=== PATIENT | male | born 1955 | race Caucasian/White ===

== ENCOUNTER 2017-02-14 09:44 | Inpatient (IN) ==
--- NOTE | 2017-02-13 21:26 | Discharge Summary ---
<Micheline Nava - Last Filed: 02/13/17 21:24> Date of Encounter: 02/13/17 - Discharge Diagnosis (1) Arthritis of knee, right Priority: Primary Status: Acute (2) Rheumatoid arthritis Priority: Secondary Status: Chronic Qualifiers: Rheumatoid arthritis location: unspecified site Rheumatoid factor presence : unspecified presence Qualified Code(s): M06.9 - Rheumatoid arthritis, unspecified (3) HTN (hypertension) Priority: Secondary Status: Chronic Qualifiers: Hypertension type: essential hypertension Qualified Code(s): I10 - Essential (primary) hypertension (4) Chronic pain Priority: Secondary Status: Chronic Comments: Takes [place] 10/325 BID, Last dose 01/07/17, #60 Will hold this. Qualifiers: Chronic pain type: other chronic pain Qualified Code(s): G89.29 - Other chronic pain - Discharge Medications Home Medications: Atenolol [Tenormin] 12.5 mg PO DAILY 07/06/16 [History] Cholecalciferol (D-3) [Vitamin D] 1,000 unit PO DAILY 07/06/16 [History] Hydroxychloroquine [Plaquenuil] 200 mg PO DAILY 07/06/16 [History] Lisinopril/Hydrochlorothiazide [Zestoretic 20-12.5 mg Tablet] 1 tab PO DAILY 09/20 [History] Ranitidine HCl [Heartburn Relief] 150 mg PO BID 07/06/16 [History] Zolpidem [Ambien] 10 mg PO HS PRN 07/06/16 [History] Glucosamn/Condroitn/C/Mn/[place] [[facility] Glucosamine Chondroit Cplt] 1 each PO DAILY 08/18/16 [History] Aspirin Enteric Coated [Aspirin EC] 325 mg PO DAILY #21 tablet. 02/13/17 [Rx] OxyCODONE Immed Rel [Roxicodone 5 MG] 5 - 10 mg PO Q6HR PRN #40 tablet 02/13/17 [Rx] Aspirin [Lo-Dose Aspirin EC] 81 mg PO DAILY 02/14/17 [History] predniSONE [PredniSONE] 3 mg PO DAILY 02/14/17 [History] Allergies/Adverse Reactions: Allergies gabapentin Adverse Reaction (Verified 02/14/17 12:38) See Comments severe constipation methotrexate Adverse Reaction (Verified 02/14/17 12:38) Vomiting Primary care physician: Carlos Schultz MD - Patient Status Disposition: Home, Self-Care Condition: Good - Discharge Instructions Follow Up With: Carlos Schultz MD [Primary Care Provider] - - Hospital Course Hospital course: Mr. Terrell is a 61 year old male - Time Spent with Patient Total time spent providing and/or coordinating discharge services: <MaldonadoAlexander - Last Filed: 02/16/17 06:55> Date of Encounter: 02/16/17 Time of Encounter: 06:55 - Discharge Diagnosis (1) Arthritis of knee, right Priority: Primary Status: Acute (2) Rheumatoid arthritis Priority: Secondary Status: Chronic Qualifiers: Rheumatoid arthritis location: unspecified site Rheumatoid factor presence : unspecified presence Qualified Code(s): M06.9 - Rheumatoid arthritis, unspecified (3) HTN (hypertension) Priority: Secondary Status: Chronic Qualifiers: Hypertension type: essential hypertension Qualified Code(s): I10 - Essential (primary) hypertension (4) Chronic pain Priority: Secondary Status: Chronic Qualifiers: Chronic pain type: other chronic pain Qualified Code(s): G89.29 - Other chronic pain Primary care physician: Carlos Schultz MD - Patient Status Functional capacity at discharge: uses cane/walker Overall status at discharge: patient is progressing back to baseline - Hospital Course Hospital course: Mr. Terrell is a 61 year old male uneventful post op course asa for dvt prophylaxis - Time Spent with Patient Total time spent providing and/or coordinating discharge services:
[2017-02-14] MEDS ORDERED: Albuterol 2.5 MG/3 ML NEBULIZER IH ONE (10:02)
[2017-02-14] MEDS ORDERED: CeFAZolin Pre 2,000 MG/100 ML 2,000 MG/100 ML BAG IVPB ONE (10:02)
[2017-02-14] MEDS ORDERED: Ringers Solution, Lactated 1,000 ML IVC SCH ×2 (10:15→17:32)
[2017-02-14] MEDS ORDERED: Lidocaine -MPF 1% 2 ML VIAL ID ONE (10:19)
[2017-02-14] MEDS ORDERED: CeFAZolin Pre 3,000 MG/100 ML 3,000 MG/100 ML BAG IVPB ONE (10:19)
--- NOTE | 2017-02-14 10:45 | History & Physical Report ---
Date of Encounter: 02/14/17 Time of Encounter: 10:45 24 Hour HP Update - Instructions Instructions: If the History and Physical is less than 30 days old and was completed prior to A.M. admission and or procedure and has NOT been updated on calendar day of procedure please complete this update prior to performing procedure. - Update Patient reports changes in Medical Condition: No Changes in examination, assessment, or condition: No Changes in Medication: No Preop tests/diagnostics Reviewed: Yes Surgery Remains Indicated: Yes Consent for Planned Operative Procedure(s) Verified: Yes - Pre-Operative Checklist Preoperative Checklist Indicated: No Prophylactic Antibiotic Ordered: Yes Is VTE Prophylaxis Indicated?: Yes
--- NOTE | 2017-02-14 11:38 | Anesthesia Evaluation PreOp ---
Date of Encounter: 02/14/17 Time of Encounter: 11:36 - Past History Planned Operation: Right Total Knee Arthroplasty Cardiac History: HTN Pulmonary History: Denies Any Significant HX, Snore VINYL INSTALLER History: Denies Any Significant HX Other Medical History: GERD, Other (obesity BMI=40.2) Anesthesia History: No Prior Anesthetic Complications, Past Anesthesia Alcohol Use: occasionally Drug use: marijuana Medications and Allergies Atenolol [Tenormin] 12.5 mg PO DAILY 07/06/16 [History] Cholecalciferol (D-3) [Vitamin D] 1,000 unit PO DAILY 07/06/16 [History] Hydroxychloroquine [Plaquenuil] 200 mg PO DAILY 07/06/16 [History] Lisinopril/Hydrochlorothiazide [Zestoretic 20-12.5 mg Tablet] 1 tab PO DAILY 09/20 [History] PredniSONE [Emani] 3 mg PO DAILY 07/06/16 [History] Ranitidine HCl [Heartburn Relief] 150 mg PO BID 07/06/16 [History] Zolpidem [Ambien] 10 mg PO HS PRN 07/06/16 [History] Glucosamn/Condroitn/C/Mn/[place] [[facility] Glucosamine Chondroit Cplt] 1 each PO DAILY 08/18/16 [History] Inulin/Chromium Picolinate [Fiber Gummies] 2 each PO DAILY 08/18/16 [History] Aspirin Enteric Coated [Aspirin EC] 325 mg PO DAILY #21 tablet. 02/13/17 [Rx] OxyCODONE Immed Rel [Roxicodone 5 MG] 5 - 10 mg PO Q6HR PRN #40 tablet 02/13/17 [Rx] Allergies gabapentin Adverse Reaction (Verified 08/18/16 09:38) See Comments severe constipation methotrexate Adverse Reaction (Verified 08/18/16 09:38) Vomiting - Meds/Allergy Pre-op Review Medications Reviewed: Yes Allergies Reviewed: Yes Beta Blockers on Current Med List: No Anesthesia Results - Labs Laboratory Tests 02/02/17 02/02/17 02/02/17 13:44 13:44 13:44 WBC 6.5 Hgb 15.0 Hct 44.0 Plt Count 233 PT 12.0 INR 1.1 APTT 31.3 Sodium 140 Potassium 4.2 BUN 14 Creatinine 0.92 - Imaging EKG: report reviewed (02/02/2017 FLORIDALMA QUIGLEY) Anesthesia Exam O2 Sat Height 1.88 m Height 1.88 m Height 1.88 m Weight 141.974 kg Weight 141.974 kg Weight 141.974 kg O2 Sat by Pulse Oximetry 97 Vital Signs Temp Pulse Resp BP Pulse Ox 97.9 F 60 18 149/88 97 02/14/17 10:10 02/14/17 10:10 02/14/17 10:10 02/14/17 10:10 02/14/17 10:10 Height: 6'2'' Weight: 313 lbs NPO (# of Hours): 8 Pain Scale: 0 Pain Scale Used: Numeric (1 - 10) - HEENT Pupil (Motor): EOMI Mallampati: III Teeth: Normal (chipped lower front tooth) Oral Opening: Greater than 3 - VINYL INSTALLER LOC: Oriented VINYL INSTALLER Motor: Normal RUE, Normal LUE, Normal RLE, Normal LLE, Normal Face VINYL INSTALLER Sensory: Normal: RUE, LUE, RLE, LLE, Face - Cardiac Rhythm: Regular Murmur: None - Pulmonary Breath Sounds: bilateral Clear Respiratory Effort: Symmetrical Anesthesia Assess/Plan ASA Score: 3 Modified [place] Scale for Level of Consciousness: Cooperative, oriented, and tranquil Anesthetic Plan: General, Regional Monitoring Plan: Standard Monitors Recovery Plan: PACU
[2017-02-14] MEDS ORDERED: *HR* Propofol 200 MG/20 ML VIAL IVP ONE (13:50)
[2017-02-14] MEDS ORDERED: Ondansetron 4 MG/2 ML VIAL ONE (13:50)
[2017-02-14] MEDS ORDERED: Ketorolac 30 MG/ML VIAL ONE (13:50)
[2017-02-14] MEDS ORDERED: *HR* Midazolam HCl 2 MG/2 ML VIAL ONE ×2 (13:50→14:09)
[2017-02-14] MEDS ORDERED: Lidocaine -MPF 2% 2 ML VIAL ONE (13:50)
[2017-02-14] MEDS ORDERED: *HR* FentaNYL (PF) 100 MCG/2 ML VIAL ONE ×2 (13:50→14:09)
[2017-02-14] MEDS ORDERED: ROPIVACAINE HCL/PF 0.5% 30 ML VIAL ONE (14:04)
--- NOTE | 2017-02-14 14:29 | Anesthesia Procedures ---
Date of Encounter: 02/14/17 Time of Encounter: 14:20 Procedures: Anesthesia - Nerve Block Procedure Date: 02/14/17 Time: 14:20 Allergies/Adv Reactions: Gabapentin methotrexate Pre-op Diagnosis: right knee arthritis Surgical Procedure: right total knee Checklist: Correct Patient Identifier, Correct procedure, History checked Correct side: Right Blood Thinner: No Monitor Applied: EKG, BP, Pulse Oximetry Supplemental Oxygen via Nasal Cannula (L/min): 2 Sedation: Versed (mg): 2 Sedation: Fentanyl (mcg): 2 Indication: Post Op Analgesia Pre-op Neuro Deficits: No Block Type: Femoral, Other (ipack ) Catheter placed: No Sterile Technique: Yes Ultrasound used: Yes Anatomy identified: Yes Visual spread of Local: Yes Neuro Stimulation: Yes Nerve Stimulator Range: 0.2 - 0.4 mA Blood on Needle Aspiration: No Smooth Injection of Local: Yes Pain with Injection of Local: No Prep: Chlorhexadine Needle: 22 x 50 mm Stimuplex Local: Ropivacaine (0.5% with 10mg decadron -30ml ), Other (bupivicaine 0.25% with 10mg decadron -30ml ) Volume (cc): 60 Number of Attempts: 1 Complications: None/effective block Vitals: Vital Signs - Last 8 Hours Temp Pulse Resp BP Pulse Ox 02/14/17 14:27 61 134/70 95 02/14/17 14:00 55 139/69 96 02/14/17 10:10 97.9 F 60 18 149/88 97 Intake and Output 02/13/17 02/14/17 02/14/17 23:59 07:59 15:59 Other: Weight 141.974 kg Patient Weight 02/14/17 23:59 Weight 141.974 kg Comments: per dr. kemp request
[2017-02-14] MEDS ORDERED: Albuterol 2.5 MG/3 ML NEBULIZER IH PRN (15:12)
[2017-02-14] MEDS ORDERED: *HR* Promethazine 25 MG/ML VIAL IVP PRN (15:12)
--- NOTE | 2017-02-14 15:32 | Orthopedic Operative Note ---
Date of procedure: 02/14/17 Pre-op diagnosis: Right knee arthritis Post-op diagnosis: same Procedure: Procedure: Right Total knee replacement Estimated blood loss: 200 cc Hardware: Metal and polyethylene replacement. Arthrex Femur: 8 Tibia: 8 PS insert: 8 Patella: 40 Exam Under anesthesia: Loss of full extension 10 degrees no instability in flexion 110 degrees Procedural Notes: Grade 4 arthritic changes medial compartment grade 3 arthritic changes patellofemoral joint Operative procedure: The patient was brought to the operating room and placed on the operating room table. After general anesthesia was administered the operative knee was examined. Findings were noted in the exam under anesthesia. The operative extremity was prepped and draped in sterile surgical fashion. The patient received IV antibiotics prior to skin incision. A standard midline incision was made centered over the patella. The incision was made through the skin and subcutaneous tissue. A medial parapatellar tendon approach was performed. Care was taken to preserve tissue along the medial aspect of the patella. And to protect the patella tendon. The deep MCL was released off the medial tibia. The infra patella fat pad was excised. Knee was brought into flexion. Patient noted to have grade 4 arthritic changes medial compartment grade 3 arthritic changes patellofemoral joint. The entry hole was made for the intramedullary femoral guide. The guide was seated in 6 degrees of valgus. Anterior cut was made followed by the distal cut. The ACL the PCL the medial and the lateral menisci were excised. The tibia was subluxed forward. The entry hole was made for the intramedullary tibial guide. Guide was seated to resect 2 mm off the more abnormal side. The knee was brought into flexion the distal femur was sized to an 8. The femoral guide was seated, the anterior cut was made followed by the posterior condylar cut, followed by the chamfer cuts. The finishing guide was seated the box cut was made and the lug holes were drilled. The tibia was sized to an 8, the tibial tray was seated and prepared with the large drill followed by the fin cutter. Trial reduction revealed full extension no varus valgus instability with the appropriate 8 PS Shannon. The patella was everted and cut was made at the level of the insertion of the quadriceps and patella tendon. The patella was sized to 40 the guide was seated and the lug holes are drilled. Trial reduction revealed excellent patella tracking. All trial components were removed all bony surfaces were irrigated. The tibia was cemented first followed by the femur. The 8 PS Shannon was seated and the knee was brought into full extension. The patella was cemented and held in place with the patellar holding clamp. After the cement had hardened, the knee sat for 2 minutes with a Betadine saline solution. The knee was then irrigated out with 2 L of pulse irrigation. The extensor mechanism was closed with #2 FiberWire suture and #2 PDS suture. The subcutaneous tissue was then irrigated and closed deep with #1 PDS suture superficially with 0 PDS suture and skin was closed with skin elder. The patient was then placed in a sterile dressing and a postoperative brace extubated and transferred to recovery room in stable condition. Anesthesia: NAKITA Surgeon: Alexander Maldonado Steam Fitter Supervisor Maintenance: Joslyn Herrera Condition: stable Disposition: PACU
[2017-02-14] MEDS: *HR* HYDROmorphone (PF) 1 MG/ML SYRINGE IVP PRN ×3 (16:29→18:13)
--- NOTE | 2017-02-14 16:47 | Anesthesia Evaluation Post Op ---
Date of Encounter: 02/14/17 Time of Encounter: 16:46 - Vital Signs Vital Signs: Vital Signs/O2 Sat/Glucose, Most Recent Temp Pulse Resp BP Pulse Ox 97.7 F 76 14 149/94 93 02/14/17 16:22 02/14/17 16:22 02/14/17 16:22 02/14/17 16:22 02/14/17 16:22 - Lungs Lungs: Clear Ascult./Percussion - Airway Airway: Non-obstructed - Cardiovascular Regular Rate, Baseline Rhythm - Mental Status Mental Status: Asleep with brisk response to light stimulation - Pain Pain Scale: 5 Pain Scale used: Vo-Pete (Faces) - Nausea Vomiting Nausea Vomiting: Not Present - Hydration Hydration: Tolerates oral liquids, Ice chips, Has not voided Notes: 02/14/17 16:46 naac - Discharge PostOp Status: Transfer Patient to floor
[2017-02-14 17:18] LABS: Hematocrit 42.7 % (37.5-50.1); Hemoglobin 14.5 g/dL (12.9-16.9)
[2017-02-14] MEDS ORDERED: MOM Conc 10 ML UD.LIQ PO PRN (17:32)
[2017-02-14] MEDS ORDERED: Sennosides 8.6 MG TABLET PO PRN (17:32)
[2017-02-14] MEDS ORDERED: Naloxone 0.4 MG/ML INJ IVP PRN (17:32)
[2017-02-14] MEDS ORDERED: Ondansetron 4 MG/2 ML VIAL IVP PRN (17:32)
[2017-02-14] MEDS ORDERED: *HR* Enoxaparin 30 MG/0.3 ML SYRINGE SQ SCH (18:00)
[2017-02-14] MEDS: *HR* Enoxaparin 30 MG/0.3 ML SYRINGE SQ SCH (18:16)
[2017-02-14] MEDS: ceFAZolin 3,000 MG in D5% in Water 100 ML IVPB SCH (18:17)
[2017-02-14] MEDS: Famotidine 20 MG TABLET PO SCH (20:45)
[2017-02-14] MEDS: *HR* OxyCODONE Immed Rel 5 MG TABLET PO PRN (20:47)
[2017-02-14] MEDS ORDERED: Temazepam 15 MG CAPSULE PO PRN (21:00)
[2017-02-15] MEDS: ceFAZolin 3,000 MG in D5% in Water 100 ML IVPB SCH (00:12)
[2017-02-15] MEDS: *HR* OxyCODONE Immed Rel 5 MG TABLET PO PRN ×4 (02:55→22:58)
[2017-02-15] MEDS: *HR* Enoxaparin 30 MG/0.3 ML SYRINGE SQ SCH ×2 (05:44→18:48)
[2017-02-15 06:35] LABS: Hematocrit 38.5 % (37.5-50.1)
[2017-02-15 06:37] LABS: Hemoglobin 12.9 g/dL (12.9-16.9)
--- NOTE | 2017-02-15 06:38 | Orthopedics Progress Note ---
Date of Encounter: 02/15/17 Time of Encounter: 06:37 - Assessment and Plan (1) Arthritis of knee, right Current Visit: Yes Status: Acute (2) Rheumatoid arthritis Current Visit: Yes Status: Chronic Qualifiers: Rheumatoid arthritis location: unspecified site Rheumatoid factor presence : unspecified presence Qualified Code(s): M06.9 - Rheumatoid arthritis, unspecified (3) HTN (hypertension) Current Visit: Yes Status: Chronic Qualifiers: Hypertension type: essential hypertension Qualified Code(s): I10 - Essential (primary) hypertension (4) Chronic pain Current Visit: Yes Status: Chronic Qualifiers: Chronic pain type: other chronic pain Qualified Code(s): G89.29 - Other chronic pain Subjective Interval history: Patient was seen this morning doing well without complaints. Afebrile vital signs stable. Operative extremity: Neurovascularly intact Dressing clean dry and intact Calves nontender Assessment and plan: Continue with postoperative care Hematocrit 38 Objective Vital signs: Vital Signs Temp Pulse Resp BP Pulse Ox 02/15/17 06:28 98.3 F 60 20 112/70 95 02/15/17 03:58 97.7 F 55 16 135/70 92 02/14/17 23:28 97.5 F L 59 16 113/66 93 02/14/17 20:20 97.9 F 68 16 112/60 96 02/14/17 19:10 98.0 F 69 10 119/54 95 02/14/17 18:22 93 02/14/17 18:15 97.5 F L 56 17 120/62 93 02/14/17 17:45 58 17 108/65 92 02/14/17 17:15 97.5 F L 58 17 120/74 93 02/14/17 17:02 98.2 F 51 13 118/70 94 02/14/17 16:52 98.2 F 61 14 121/79 94 02/14/17 16:42 55 14 112/69 92 02/14/17 16:32 57 15 114/73 93 02/14/17 16:22 97.7 F 76 14 149/94 93 02/14/17 14:27 61 134/70 95 02/14/17 14:00 55 139/69 96 02/14/17 10:10 97.9 F 60 18 149/88 97 Intake and Output 02/14/17 02/14/17 02/15/17 15:59 23:59 07:59 Intake Total 100 / 100 100 / 100 Output Total 200 / 200 Balance -200 / -200 100 / 100 100 / 100 Intake: IV Fluids 100 / 100 100 / 100 Ancef 3,000 MG In 100 / 100 100 / 100 Dextrose 5% 100 ML @ 200 mls/hr IVPB Q8HR JACQUE Rx#: [id number] Output: Estimated Blood Loss 200 / 200 Other: Weight 141.974 kg 149.1 kg Patient Weight 02/15/17 23:59 Weight 149.1 kg - Labs CBC & BMP: 02/15/17 05:41 - VTE Documentation of Mechanical Device: Venous foot pump, device Consult Discharge Plan - Plan Referrals: Carlos Schultz MD [Primary Care Provider] -
[2017-02-15 06:53] LABS: BUN/Creatinine Ratio 20 (6-26); Blood Urea Nitrogen 20 mg/dL (8-26); Calcium 8.9 mg/dL (8.6-10.8); Carbon Dioxide 25 mEq/L (19-29); Chloride 102 mEq/L (98-109); Glucose 163 mg/dL (70-99); Osmolality,Calculated 286 (280-300); Potassium 4.4 mEq/L (3.5-4.5); Sodium 135 mEq/L (136-145); eGFR For African Americans > 60 (> 60); eGFR For Non-African Americans > 60 (> 60)
[2017-02-15] MEDS: Lisinopril-HCTZ 20-12.5mg TABLET PO SCH (09:30)
[2017-02-15] MEDS: Famotidine 20 MG TABLET PO SCH ×2 (09:30→21:34)
[2017-02-15] MEDS: Cholecalciferol (D-3) 1,000 UNIT TABLET PO SCH (09:31)
[2017-02-15] MEDS: predniSONE 1 MG TABLET PO SCH (09:31)
[2017-02-15] MEDS: Aspirin Enteric Coated 81 MG Tablet PO SCH (09:31)
[2017-02-16] MEDS: *HR* OxyCODONE Immed Rel 5 MG TABLET PO PRN ×4 (04:37→22:10)
[2017-02-16] MEDS: *HR* Enoxaparin 30 MG/0.3 ML SYRINGE SQ SCH ×2 (04:38→17:19)
[2017-02-16 06:25] LABS: Hemoglobin 12.1 g/dL (12.9-16.9)
[2017-02-16] MEDS: *HR* HYDROmorphone (PF) 1 MG/ML SYRINGE IVP PRN ×2 (06:29→13:50)
[2017-02-16 06:48] LABS: BUN/Creatinine Ratio 19 (6-26); Blood Urea Nitrogen 16 mg/dL (8-26); Calcium 8.9 mg/dL (8.6-10.8); Carbon Dioxide 26 mEq/L (19-29); Chloride 105 mEq/L (98-109); Glucose 100 mg/dL (70-99); Osmolality,Calculated 289 (280-300); Potassium 4.2 mEq/L (3.5-4.5); Sodium 139 mEq/L (136-145); eGFR For African Americans > 60 (> 60); eGFR For Non-African Americans > 60 (> 60)
--- NOTE | 2017-02-16 06:56 | Orthopedics Progress Note ---
Date of Encounter: 02/16/17 Time of Encounter: 06:56 - Assessment and Plan (1) Arthritis of knee, right Current Visit: Yes Status: Acute (2) Rheumatoid arthritis Current Visit: Yes Status: Chronic Qualifiers: Rheumatoid arthritis location: unspecified site Rheumatoid factor presence : unspecified presence Qualified Code(s): M06.9 - Rheumatoid arthritis, unspecified (3) HTN (hypertension) Current Visit: Yes Status: Chronic Qualifiers: Hypertension type: essential hypertension Qualified Code(s): I10 - Essential (primary) hypertension (4) Chronic pain Current Visit: Yes Status: Chronic Qualifiers: Chronic pain type: other chronic pain Qualified Code(s): G89.29 - Other chronic pain Subjective Interval history: Patient was seen this morning doing well without complaints. Afebrile vital signs stable. Operative extremity: Neurovascularly intact Dressing clean dry and intact Calves nontender Assessment and plan: Continue with postoperative care Hematocrit 36 dc today Objective Vital signs: Vital Signs Temp Pulse Resp BP Pulse Ox 02/16/17 00:12 97.7 F 65 18 109/67 94 02/15/17 21:11 98.5 F 56 20 110/68 96 02/15/17 15:07 98.4 F 58 20 132/75 93 02/15/17 11:22 97.5 F L 64 20 134/76 95 02/15/17 09:21 60 20 112/70 95 Intake and Output 02/15/17 02/15/17 02/16/17 15:59 23:59 07:59 Intake Total 240 / 240 120 / 120 Output Total 500 / 500 1200 / 1200 400 / 400 Balance -260 / -260 -1080 / -1080 -400 / -400 Intake: Oral 240 / 240 120 / 120 Output: Urine 500 / 500 1200 / 1200 400 / 400 Other: Meal Breakfast Dinner Percent of Meal Consumed 100% 100% - Labs CBC & BMP: 02/16/17 05:47 02/16/17 05:47 Labs: Abnormal lab results Hgb 12.1 g/dL (12.9-16.9) L 02/16/17 05:47 Hct 36.0 % (37.5-50.1) L 02/16/17 05:47 Glucose 100 mg/dL (70-99) H 02/16/17 05:47 - VTE Documentation of Mechanical Device: Venous foot pump, device Consult Discharge Plan - Plan Referrals: Carlos Schultz MD [Primary Care Provider] -
[2017-02-16] MEDS: Lisinopril-HCTZ 20-12.5mg TABLET PO SCH (09:50)
[2017-02-16] MEDS: Famotidine 20 MG TABLET PO SCH ×2 (09:50→22:10)
[2017-02-16] MEDS: Cholecalciferol (D-3) 1,000 UNIT TABLET PO SCH (09:51)
[2017-02-16] MEDS: Aspirin Enteric Coated 81 MG Tablet PO SCH (09:51)
[2017-02-16] MEDS: predniSONE 1 MG TABLET PO SCH (09:51)
[2017-02-16] MEDS ORDERED: Ibuprofen 600 MG TABLET PO PRN (11:43)
[2017-02-16] MEDS ORDERED: Acetaminophen IV 1,000 MG/100 ML INFUS..BTL IVPB PRN (14:57)
[2017-02-16] MEDS ORDERED: Ketorolac 15 MG/ML VIAL IVP ONE (16:00)
[2017-02-17] MEDS: *HR* OxyCODONE Immed Rel 5 MG TABLET PO PRN ×2 (03:10→09:08)
[2017-02-17] MEDS: *HR* Enoxaparin 30 MG/0.3 ML SYRINGE SQ SCH (05:58)
[2017-02-17] MEDS: *HR* HYDROmorphone (PF) 1 MG/ML SYRINGE IVP PRN (06:01)
--- NOTE | 2017-02-17 08:13 | Orthopedics Progress Note ---
Date of Encounter: 02/17/17 Time of Encounter: 08:12 - Assessment and Plan (1) Arthritis of knee, right Current Visit: Yes Status: Acute (2) Rheumatoid arthritis Current Visit: Yes Status: Chronic Qualifiers: Rheumatoid arthritis location: unspecified site Rheumatoid factor presence : unspecified presence Qualified Code(s): M06.9 - Rheumatoid arthritis, unspecified (3) HTN (hypertension) Current Visit: Yes Status: Chronic Qualifiers: Hypertension type: essential hypertension Qualified Code(s): I10 - Essential (primary) hypertension (4) Chronic pain Current Visit: Yes Status: Chronic Qualifiers: Chronic pain type: other chronic pain Qualified Code(s): G89.29 - Other chronic pain Subjective Interval history: Patient was seen this morning doing well without complaints. Afebrile vital signs stable. Operative extremity: Neurovascularly intact Dressing clean dry and intact Calves nontender Assessment and plan: Continue with postoperative care dc today Objective Vital signs: Vital Signs Temp Pulse Resp BP Pulse Ox 02/17/17 07:12 98.2 F 65 18 143/75 94 02/16/17 23:49 98.4 F 58 16 118/70 94 02/16/17 19:24 98.2 F 58 133/67 95 02/16/17 10:46 97.8 F 60 16 127/71 96 Intake and Output 02/16/17 02/17/17 02/17/17 23:59 07:59 15:59 Intake Total 1070 / 1070 Output Total 750 / 750 500 / 500 Balance 320 / 320 -500 / -500 Intake: IV Fluids 100 / 100 Ofirmev 1,000 mg/100 ml 1 100 / 100 ,000 mg In 100 ml @ 400 mls/hr IVPB Q6HR PRN Rx#: [id number] Oral 970 / 970 Output: Urine 750 / 750 500 / 500 Other: Meal Dinner Percent of Meal Consumed 100% Weight 149.1 kg Patient Weight 02/17/17 23:59 Weight 149.1 kg - Labs CBC & BMP: 02/16/17 05:47 02/16/17 05:47 Labs: Abnormal lab results Hgb 12.1 g/dL (12.9-16.9) L 02/16/17 05:47 Hct 36.0 % (37.5-50.1) L 02/16/17 05:47 Glucose 100 mg/dL (70-99) H 02/16/17 05:47 - VTE Documentation of Mechanical Device: Venous foot pump, device Consult Discharge Plan - Plan Additional Instructions: Discharge Instructions: Total Knee Replacement Please call [facility] ([phone]), your Primary Care Physician, or report to the Emergency Room if you have any of the following symptoms: Nausea, vomiting, fever greater that 101.5, swelling, chest pain, shortness of breath, increased pain/redness/drainage/odor for your incision site, numbness/ tingling, or any other concerning symptoms. ACTIVITY:Weight-bearing as tolerated. You may progress off support (crutches or walker) as tolerated. MEDICATIONS: Upon discharge resume your home medications. Take all the medications as prescribed. Take a stool softener if taking narcotic pain medications. Stool softeners are only effective if you drink enough fluids. Drink 6-8 glass of water or fluids a day, unless this is not allowed for another health problem. Despite using stool softeners, if you haven't had a bowel movement in 3 days, please switch to a gentle laxative. Gentle laxatives are sold over the counter. You should have a bowel movement within 24 hours, if not call the office. You will be discharged from the hospital with a prescription for pain medication. You are encouraged to decrease the use of narcotic pain medication as tolerated. Should you require a refill, please call the office. [facility] prescribes narcotic pain medication for only 4-6 weeks after surgery. If you require pain medication beyond this time period, you may be referred to your Primary Care Physician or to the Pain Clinic for further evaluation. Plan ahead for refills on pain medication as many narcotics either need to be picked up at the office or mailed. It is best to call 48-72 hours in advance of needing a prescription refill so you don't run out of medication. To help control the post-operative pain, you may take NSAIDs (Aleve,Advil, Motrin, Ibuprofen, Naprosyn) or Tylenol as prescribed on the bottle in addition to the pain medication. ANTICOAGULATION (blood thinners): Continue your Aspirin, Lovenox or Coumadin as prescribed to help prevent a blood clot in the leg or in the lungs. As long as your incision remains dry and you tolerate the NSAIDs (Aleve, Advil, Motrin, ibuprofen, naprosyn), it is OK to use the NSAIDS while you are taking your anticoagulation medication. Should your incision start to drain, stop the NSAID and contact our office. Common symptoms of blood clot in the legs include: localized pain, swelling, calf tenderness, redness or discoloration of the skin. Blood clot in the lung symptoms include: shortness of breath, rapid pulse, sweating, and chest pain that worsens with deep breathing, coughing up blood, lightheadedness, feelings of anxiety. If you experience any of these symptoms notify your physician immediately, go to the emergency room, or if having trouble breathing, call 911. WOUND CARE: Leave the dressing on for 7 to 10days. You may change the dressing if it becomes saturated greater than 50%. Do not get the dressing wet at anytime. Wash your hands with antibacterial soap, rinse and dry prior to any wound care. If you have elder the visiting nurse or rehab facility can remove the stapes 10-14 days after surgery and place steri-strips across the wound. Leave the steri-strips in place until they fall off on their won. You may let water from the shower run on top of the steri-strips. If you do not have a visiting nurse or rehab facility, you will need to return to the office at 10-14 days for the elder to be removed. If you have itching or redness around the dressing call the office. FOLLOW-UP: Please follow up with your surgeon in the orthopedic clinic in 4 weeks from the day of surgery. If you have elder that need to be removed, you will need to come back to the office in 10-14 days from the day of surgery. Referrals: Alexander Maldonado MD [Partnered Physician] - Carlos Schultz MD [Primary Care Provider] -
[2017-02-17] MEDS: Famotidine 20 MG TABLET PO SCH (09:08)
[2017-02-17] MEDS: Lisinopril-HCTZ 20-12.5mg TABLET PO SCH (09:08)
[2017-02-17] MEDS: predniSONE 1 MG TABLET PO SCH (09:08)
[2017-02-17] MEDS: Cholecalciferol (D-3) 1,000 UNIT TABLET PO SCH (09:09)
[2017-02-17] MEDS: Aspirin Enteric Coated 81 MG Tablet PO SCH (09:09)
[2017-02-17 10:51] VITALS: BP 129/77
== END 2017-02-17 13:00 | disposition home health service (06) | DRG 470 ==
LOC: SAMDAY 09:44 → 3NENU 17:11
PROVIDERS: ADMIT Orthopaedic Surgery; ATTEND Orthopaedic Surgery

== ENCOUNTER 2019-07-19 13:10 | Inpatient (IN) ==
[2019-07-19] MEDS ORDERED: Albuterol 2.5 MG/3 ML NEBULIZER IH ONE (13:27)
[2019-07-19] MEDS ORDERED: CeFAZolin Syr 3,000MG/30 ML 3,000 MG/30 ML SYRINGE IVPB ONE (13:27)
[2019-07-19] MEDS ORDERED: Ringers Solution, Lactated 1,000 ML IVC SCH ×2 (13:30→19:36)
[2019-07-19] MEDS ORDERED: Ondansetron 4 MG/2 ML VIAL IVP ONE (14:48)
[2019-07-19] MEDS ORDERED: *HR* Promethazine 25 MG/ML VIAL IVP PRN (14:48)
[2019-07-19] MEDS ORDERED: Ketorolac 30 MG/ML VIAL IVP ONE (14:48)
[2019-07-19] MEDS ORDERED: Famotidine 20 MG/2 ML VIAL IVP ONE (14:48)
[2019-07-19] MEDS ORDERED: Acetaminophen IV 1,000 MG/100 ML INFUS..BTL IVPB ONE (14:48)
[2019-07-19] MEDS ORDERED: *HR* OxyCODONE Immed Rel 5 MG TABLET PO PRN ×2 (14:48→19:36)
[2019-07-19] MEDS ORDERED: *HR* FentaNYL (PF) 100 MCG/2 ML VIAL ONE (15:26)
[2019-07-19] MEDS ORDERED: *HR* Succinylcholine 200 MG/10 ML VIAL IVP ONE ×2 (15:26→17:11)
[2019-07-19] MEDS ORDERED: Lidocaine -MPF 2% 2 ML VIAL ONE (15:26)
[2019-07-19] MEDS ORDERED: Ondansetron 4 MG/2 ML VIAL ONE (15:26)
[2019-07-19] MEDS ORDERED: Lidocaine HCL 4 ML Topical Solution (Laryng-O-Jet Kit Sterile Pak) TP ONE (15:27)
[2019-07-19] MEDS ORDERED: *HR* Propofol 200 MG/20 ML VIAL IVP ONE (15:27)
[2019-07-19] MEDS ORDERED: ROPIVACAINE/PF/NS 0.25% 1 EACH SYRINGE INTRAART ONE (15:44)
[2019-07-19] MEDS ORDERED: Ropivacaine/PF 0.5% 30 ML VIAL ONE (15:44)
[2019-07-19] MEDS ORDERED: *HR* Midazolam HCl 5 MG/5 ML VIAL IVP ONE (15:48)
[2019-07-19] MEDS ORDERED: MethylPREDNISolone Acet(DEPOT) 80 MG/ML VIAL ONE (16:53)
[2019-07-19] MEDS ORDERED: Ethanol\\Acetic Acid\\Na Ace\\Ben 1,000 ML IRRIG.SOLN IR ONE (16:53)
[2019-07-19] MEDS ORDERED: Bupivacaine/EPI 1:200k 0.5%PF 10 ML VIAL ONE (16:53)
[2019-07-19] MEDS ORDERED: EPHEDrine 50 MG/ML VIAL ONE (17:50)
[2019-07-19] MEDS: *HR* HYDROmorphone (PF) 1 MG/ML SYRINGE IVP PRN ×2 (18:30→18:44)
[2019-07-19 19:07] LABS: Hematocrit 40.9 % (37.5-50.1); Hemoglobin 14.3 g/dL (12.9-16.9)
[2019-07-19] MEDS ORDERED: Temazepam 15 MG CAPSULE PO PRN (19:36)
[2019-07-19] MEDS ORDERED: traMADol 50 MG TABLET PO PRN (19:36)
[2019-07-19] MEDS ORDERED: Sennosides 8.6 MG TABLET PO PRN (19:36)
[2019-07-19] MEDS ORDERED: MOM Conc 10 ML UD.LIQ PO PRN (19:36)
[2019-07-19] MEDS ORDERED: Ondansetron 4 MG/2 ML VIAL IVP PRN (19:36)
[2019-07-19] MEDS ORDERED: NON-FORMULARY MEDICATION 1 EACH EACH (Sildenafil Citrate [Viagra] 100 MG) PO PRN (19:36)
[2019-07-19] MEDS ORDERED: CeFAZolin Syr 3,000MG/30 ML 3,000 MG/30 ML SYRINGE IVPB SCH (19:36)
[2019-07-19] MEDS ORDERED: Acetaminophen 325 MG TABLET PO SCH (21:00)
[2019-07-19] MEDS ORDERED: *HR* Rivaroxaban 10 MG TABLET PO SCH (21:00)
[2019-07-19] MEDS: Famotidine 20 MG TABLET PO SCH (21:12)
[2019-07-19] MEDS: *HR* OxyCODONE/APAP 5/325 TABLET PO PRN (22:51)
[2019-07-20] MEDS: ceFAZolin 3,000 MG in 0.9 % Sodium Chloride 100 ML IVPB SCH ×2 (01:02→08:25)
[2019-07-20] MEDS: *HR* OxyCODONE/APAP 5/325 TABLET PO PRN ×3 (02:56→13:48)
[2019-07-20 05:47] LABS: Hematocrit 39.2 % (37.5-50.1); Hemoglobin 13.7 g/dL (12.9-16.9)
[2019-07-20 06:03] LABS: BUN/Creatinine Ratio 18 (6-26); Blood Urea Nitrogen 15 mg/dL (8-23); Calcium 8.9 mg/dL (8.6-10.3); Carbon Dioxide 25 mEq/L (23-29); Chloride 102 mEq/L (98-107); Glucose 192 mg/dL (70-105); Osmolality,Calculated 290 (280-300); Potassium 4.7 mEq/L (3.5-5.1); Sodium 137 mEq/L (136-145); eGFR For African Americans > 60 (> 60); eGFR For Non-African Americans > 60 (> 60)
[2019-07-20] MEDS: Famotidine 20 MG TABLET PO SCH (08:25)
[2019-07-20] MEDS ORDERED: *HR* Rivaroxaban 10 MG TABLET PO SCH (09:00)
[2019-07-20] MEDS ORDERED: [UNRECOGNIZED DRUG - OTHER] PO SCH (09:00)
[2019-07-20] MEDS ORDERED: Lisinopril 20 MG TABLET PO SCH (09:00)
[2019-07-20] MEDS ORDERED: Cholecalciferol (D-3) 1,000 UNIT (25MCG) TABLET PO SCH (09:00)
[2019-07-20] MEDS ORDERED: Multivit/Ca/Min/Fe/FA 1 TAB TABLET PO SCH (09:00)
[2019-07-20] MEDS ORDERED: CLINDAMYCIN PHOSPHATE TP SCH (09:00)
[2019-07-20 10:47] VITALS: BP 145/77
== END 2019-07-20 15:45 | disposition home health service (06) | DRG 483 ==
LOC: SAMDAY 13:10 → 3NENU 19:11
PROVIDERS: ADMIT Orthopaedic Surgery; ATTEND Orthopaedic Surgery